=== PATIENT | male | born 1945 | race Caucasian/White ===

== ENCOUNTER 2016-11-07 09:29 | Outpatient (CLI) | END 2016-11-07 09:30 | disposition home or self-care (01) ==

== ENCOUNTER 2017-06-23 16:04 | Outpatient (CLI) | payer MEDICARE ==
--- NOTE | 2017-06-24 09:08 | XRAY Report ---
THREE-VIEW RIGHT FOOT: 06/23/2017 CLINICAL INDICATION: Crush injury. FINDINGS: AP, lateral, oblique views of the right foot demonstrate mild osteoarthritis of the interp halangeal joints and 1st metatarsophalangeal joint. There is no evidence of acute fracture or disloc ation. No radiopaque foreign body is seen in the soft tissues. Vascular calcifications are incident ally noted. IMPRESSION: MILD OSTEOARTHRITIS. NO EVIDENCE OF ACUTE FRACTURE. JOB #: [id number] EXT JOB #:[id number]
== END 2017-06-23 16:05 | disposition home or self-care (01) ==
LOC: DI 16:04
PROVIDERS: ATTEND Physician Assistant Medical
DX: S97.81XA Crushing injury of right foot, initial encounter (principal); M79.671 Pain in right foot; M19.071 Primary osteoarthritis, right ankle and foot

== ENCOUNTER 2017-11-10 10:17 | Outpatient (CLI) | payer MEDICARE ==
[2017-11-10 18:29] LABS: BASOPHILS % (AUTO) 0.5 %; EOSINOPHILS # (AUTO) 0.2 10^3/uL (0.0-0.7); EOSINOPHILS % (AUTO) 2.4 %; HGB - HEMOGLOBIN 15.4 g/dL (14.0-18.0); MEAN CORPUSCULAR HEMOGLOBIN 32.2 pg (27.0-31.0); MEAN CORPUSCULAR HGB CONC 33.6 g/dL (32.0-36.0); MEAN CORPUSCULAR VOLUME 95.9 fL (80.0-94.0); MEAN PLATELET VOLUME 8.3 fL (7.4-11.4); MONOCYTES # (AUTO) 0.8 10^3/uL (0.0-1.0); MONOCYTES % (AUTO) 9.3 %; NEUTROPHILS # (AUTO) 5.3 10^3/uL (1.5-6.6); NEUTROPHILS % (AUTO) 63.8 %; PLT - PLATELET COUNT 254 10^3/uL (130-450); RED BLOOD COUNT 4.79 10^6/uL (4.70-6.10); RED CELL DISTRIBUTION WIDTH 13.5 % (12.0-15.0); WHITE BLOOD COUNT 8.4 x10^3/uL (4.8-10.8)
[2017-11-10 18:40] LABS: ALBUMIN 4.3 g/dL (3.2-5.5); ALBUMIN/GLOBULIN RATIO 1.3 (1.0-2.2); BILIRUBIN,TOTAL 0.5 mg/dL (0.2-1.0); CALCIUM 9.4 mg/dL (8.5-10.3); CREATININE 0.9 mg/dL (0.6-1.2); TOTAL PROTEIN 7.5 g/dL (6.7-8.2)
== END 2017-11-10 10:18 | disposition home or self-care (01) ==
LOC: LAB.F 10:17
PROVIDERS: ATTEND Physician Assistant Medical
DX: Z12.5 Encounter for screening for malignant neoplasm of prostate (principal); I10 Essential (primary) hypertension; E55.9 Vitamin D deficiency, unspecified
CPT/HCPCS: 36415; 80053; 82306; 85025; G0103; 84153

== ENCOUNTER 2018-03-13 08:47 | Outpatient (CLI) | payer MEDICARE ==
[2018-03-13 11:59] LABS: ALBUMIN/GLOBULIN RATIO 1.3 (1.0-2.2); BILIRUBIN,TOTAL 0.7 mg/dL (0.2-1.0); CALCIUM 9.2 mg/dL (8.5-10.3); CREATININE 0.9 mg/dL (0.6-1.2); TOTAL PROTEIN 7.2 g/dL (6.7-8.2)
== END 2018-03-13 08:48 | disposition home or self-care (01) ==
LOC: LAB.F 08:47
PROVIDERS: ATTEND Physician Assistant Medical
DX: I10 Essential (primary) hypertension (principal); E55.9 Vitamin D deficiency, unspecified
CPT/HCPCS: 36415; 80053; 82306

== ENCOUNTER 2018-11-06 09:57 | Outpatient (CLI) | payer MEDICARE ==
[2018-11-06 17:56] LABS: BASOPHILS % (AUTO) 0.8 %; EOSINOPHILS # (AUTO) 0.2 10^3/uL (0.0-0.7); EOSINOPHILS % (AUTO) 3.1 %; HGB - HEMOGLOBIN 14.4 g/dL (14.0-18.0); LYMPHOCYTES # (AUTO) 1.9 10^3/uL (1.5-3.5); LYMPHOCYTES % (AUTO) 31.8 %; MEAN CORPUSCULAR HEMOGLOBIN 32.8 pg (27.0-31.0); MEAN CORPUSCULAR HGB CONC 33.2 g/dL (32.0-36.0); MEAN CORPUSCULAR VOLUME 98.9 fL (80.0-94.0); MEAN PLATELET VOLUME 7.8 fL (7.4-11.4); MONOCYTES # (AUTO) 0.6 10^3/uL (0.0-1.0); MONOCYTES % (AUTO) 10.6 %; NEUTROPHILS # (AUTO) 3.2 10^3/uL (1.5-6.6); NEUTROPHILS % (AUTO) 53.7 %; PLT - PLATELET COUNT 272 10^3/uL (130-450); RED BLOOD COUNT 4.39 10^6/uL (4.70-6.10); RED CELL DISTRIBUTION WIDTH 13.7 % (12.0-15.0); WHITE BLOOD COUNT 5.9 x10^3/uL (4.8-10.8)
[2018-11-06 20:23] LABS: ALBUMIN 4.1 g/dL (3.2-5.5); ALBUMIN/GLOBULIN RATIO 1.2 (1.0-2.2); BILIRUBIN,TOTAL 0.6 mg/dL (0.2-1.0); CALCIUM 8.8 mg/dL (8.5-10.3); TOTAL PROTEIN 7.4 g/dL (6.7-8.2)
== END 2018-11-06 09:58 | disposition home or self-care (01) ==
LOC: LAB.F 09:57
PROVIDERS: ATTEND Physician Assistant Medical
DX: I10 Essential (primary) hypertension (principal); Z12.5 Encounter for screening for malignant neoplasm of prostate
CPT/HCPCS: 36415; 80053; 85025; G0103; 84153

== ENCOUNTER 2019-08-17 08:57 | Outpatient (CLI) | payer MEDICARE ==
--- NOTE | 2019-08-17 09:34 | XRAY Report ---
Reason: MASS OF RIGHT KNEE JOINT Procedure Date: 08/17/2019 Accession Number: [id number] / [id number] Procedure: XRS - Knee 3 View RT CPT Code: FULL RESULT: EXAM: RIGHT KNEE RADIOGRAPHY EXAM DATE: 08/17/2019 09:10 AM. CLINICAL HISTORY: Mass of right knee joint. COMPARISON: None. TECHNIQUE: 3 views. FINDINGS: Bones: Normal. No fractures or bone lesions. Joints: The patient is status post unicompartmental knee arthroplasty in the medial weightbearing compartment. The femoral-tibial relationship is centered about the isocenters of the prosthesis components with suggestion of medial translation of the lateral femorotibial articulation as visualized. This apparent malalignment is likely exacerbated by oblique positioning of the AP projection. Similar suggestion is demonstrated on the sunrise view. Osteoarthrosis including marginal osteophytosis is seen at the patellar facet articulations as well as the lateral weightbearing compartment where chondrocalcinosis is noted. Soft Tissues: No radiopaque foreign body. Vascular calcifications are noted. IMPRESSION: Degenerative changes and alignment as described above in the setting of unicompartmental knee arthroplasty. If alignment is questionable on physical examination, recommend clarification with weightbearing views. RADIA
== END 2019-08-17 08:58 | disposition home or self-care (01) ==
LOC: DI.S 08:57
PROVIDERS: ATTEND Physician Assistant Medical
DX: M25.861 Other specified joint disorders, right knee (principal); M17.11 Unilateral primary osteoarthritis, right knee; M11.261 Other chondrocalcinosis, right knee

== ENCOUNTER 2019-11-08 11:28 | Outpatient (CLI) | payer MEDICARE ==
[2019-11-08 17:28] LABS: BASOPHILS # (AUTO) 0.1 10^3/uL (0.0-0.1); BASOPHILS % (AUTO) 0.8 %; EOSINOPHILS # (AUTO) 0.1 10^3/uL (0.0-0.7); EOSINOPHILS % (AUTO) 2.4 %; HGB - HEMOGLOBIN 14.2 g/dL (14.0-18.0); LYMPHOCYTES % (AUTO) 34.5 %; MEAN CORPUSCULAR HEMOGLOBIN 32.6 pg (27.0-31.0); MEAN CORPUSCULAR HGB CONC 33.4 g/dL (32.0-36.0); MEAN CORPUSCULAR VOLUME 97.5 fL (80.0-94.0); MEAN PLATELET VOLUME 10.5 fL (7.4-11.4); MONOCYTES # (AUTO) 0.6 10^3/uL (0.0-1.0); MONOCYTES % (AUTO) 9.3 %; NEUTROPHILS # (AUTO) 3.1 10^3/uL (1.5-6.6); NEUTROPHILS % (AUTO) 52.7 %; PLT - PLATELET COUNT 278 10^3/uL (130-450); RED BLOOD COUNT 4.36 10^6/uL (4.70-6.10); RED CELL DISTRIBUTION WIDTH 12.6 % (12.0-15.0); WHITE BLOOD COUNT 5.9 x10^3/uL (4.8-10.8)
[2019-11-08 18:17] LABS: ALBUMIN 4.5 g/dL (3.2-5.5); ALBUMIN/GLOBULIN RATIO 1.5 (1.0-2.2); BILIRUBIN,TOTAL 0.5 mg/dL (0.2-1.0); CALCIUM 9.7 mg/dL (8.5-10.3); CREATININE 0.8 mg/dL (0.6-1.2); TOTAL PROTEIN 7.6 g/dL (6.7-8.2)
[2019-11-08 18:50] LABS: HB2 TOTAL 14.5 g/dL; HEMOGLOBIN A1C 0.61 g/dL
== END 2019-11-08 11:29 | disposition home or self-care (01) ==
LOC: LAB.S 11:28
PROVIDERS: ATTEND Physician Assistant Medical
DX: I10 Essential (primary) hypertension (principal); Z12.5 Encounter for screening for malignant neoplasm of prostate; R73.01 Impaired fasting glucose
CPT/HCPCS: 36415; 80053; 83036; 85025; G0103; 84153

== ENCOUNTER 2019-11-25 11:21 | Outpatient (CLI) | payer MEDICARE ==
--- NOTE | 2019-11-25 17:26 | XRAY Report ---
Reason: CELLULITIS,SHARIFA,RIGHT Procedure Date: 11/25/2019 Accession Number: [id number] / [id number] Procedure: XRS - Finger(s) RT CPT Code: Final Report FULL RESULT: EXAM: RIGHT SECOND DIGIT RADIOGRAPHY EXAM DATE: 11/25/2019 11:47 AM. CLINICAL HISTORY: Cellulitis of the right finger. COMPARISON: None. TECHNIQUE: 3 views. FINDINGS: Bones: Equivocal/subtle cortical irregularity along the dorsal base of the distal phalanx of the second finger is seen, nonspecific. Osseous structures are otherwise intact. Joints: Mild osteoarthritic changes are seen in the DIP joint. Alignment is preserved. Soft Tissues: Generalized soft tissue swelling in the distal second finger is seen. IMPRESSION: Soft tissue swelling and subtle cortical irregularity along the dorsal base of the distal phalanx of the second finger. Underlying osteomyelitis in this area is not excluded. Correlation with finger MRI could be helpful in further evaluation. [facility]IA
== END 2019-11-25 11:22 | disposition home or self-care (01) ==
LOC: DI.S 11:21
PROVIDERS: ATTEND Family Medicine
DX: L03.011 Cellulitis of right finger (principal)
CPT/HCPCS: 73140

== ENCOUNTER 2019-12-02 15:54 | Outpatient (CLI) | payer MEDICARE ==
[~2019-12-02 15:54] MED LIST: GADOBUTROL 10 MMOL/10 ML VIAL ONE
[2019-12-02] MEDS ORDERED: GADOBUTROL 10 MMOL/10 ML VIAL IVP ONE (17:25)
--- NOTE | 2019-12-02 19:01 | MRI Report ---
Reason: CELLULITIS FINGER RT Procedure Date: 12/02/2019 Accession Number: [id number] / [id number] Procedure: MRI - Hand RT W/WO CPT Code: Final Report FULL RESULT: EXAM: RIGHT HAND MRI WITHOUT AND WITH CONTRAST EXAM DATE: 12/02/2019 05:44 PM. CLINICAL HISTORY: Cellulitis, right finger. COMPARISON: FINGER(S) RT 11/25/2019 12:00 PM. TECHNIQUE: Multiplanar, multisequence T1-weighted and fluid-sensitive sequences of the hand before and after administration of intravenous contrast. IV contrast: 9 cc Gadavist. Other: None. FINDINGS: Bones: Edema shaft and head middle phalanx second digit and diffuse marrow edema distal phalanx second digit sagittal proton density fat saturation and sagittal T1-weighted fat saturation sequences. Indistinct mild decreased marrow signal noncontrast T1-weighted sequence middle phalanx head and distal phalanx base. Sagittal T1-weighted sequence degraded by motion artifact. Probable decreased marrow signal middle phalanx head second digit on the axial T1-weighted sequence. Joints: Negative for increased fluid distal interphalangeal joint. Moderate osteoarthritis distal interphalangeal joint second digit. Ligaments: The visualized collateral ligaments are intact. Tendons: Diffuse second digit flexor tendon mild tenosynovitis. Probable tenosynovitis extensor tendon at the level of the proximal phalanx had. Other: No joint effusions or synovitis. Diffuse second digit cellulitis. Developing abscess ventral aspect distal interphalangeal joint and flexor tendon 1.4 cm in height, 1.5 cm in transverse dimension and 7 mm in AP dimension. At the dorsal radial aspect distal interphalangeal joint second digit is a 9.6 x 6.9 mm in transverse dimension and 5 mm in length probable abscess (image 33 series [id number]). IMPRESSION: 1. Possible early osteomyelitis distal phalanx base and middle phalanx head second digit. 2. Moderate osteoarthritis distal interphalangeal joint second digit. 3. Probable abscess 9.6 x 6.9 mm in transverse dimension and 5 mm in length dorsal radial aspect distal interphalangeal joint (image 33 series [id number]). 4. Maturing abscess 1.4 cm in length, 1.5 cm in transverse dimension and 7 mm in AP dimension palmar aspect distal interphalangeal joint second digit. 5. Diffuse second digit cellulitis and there is diffuse mild second digit flexor tendon tenosynovitis. RADIA
== END 2019-12-02 15:55 | disposition home or self-care (01) ==
LOC: DI 15:54
PROVIDERS: ATTEND Family Medicine
DX: M19.041 Primary osteoarthritis, right hand (principal); L03.011 Cellulitis of right finger; M00.9 Pyogenic arthritis, unspecified; M65.9 Synovitis and tenosynovitis, unspecified
CPT/HCPCS: 73220; A9585

== ENCOUNTER 2020-11-21 09:30 | Outpatient (CLI) | payer MEDICARE ==
[2020-11-21 16:02] LABS: BASOPHILS # (AUTO) 0.1 10^3/uL (0.0-0.1); BASOPHILS % (AUTO) 1.1 %; EOSINOPHILS # (AUTO) 0.2 10^3/uL (0.0-0.7); EOSINOPHILS % (AUTO) 3.2 %; HGB - HEMOGLOBIN 15.8 g/dL (14.0-18.0); LYMPHOCYTES # (AUTO) 1.8 10^3/uL (1.5-3.5); LYMPHOCYTES % (AUTO) 32.2 %; MEAN CORPUSCULAR HEMOGLOBIN 32.3 pg (27.0-31.0); MEAN CORPUSCULAR HGB CONC 34.3 g/dL (32.0-36.0); MEAN CORPUSCULAR VOLUME 94.1 fL (80.0-94.0); MEAN PLATELET VOLUME 10.2 fL (7.4-11.4); MONOCYTES # (AUTO) 0.7 10^3/uL (0.0-1.0); MONOCYTES % (AUTO) 12.5 %; NEUTROPHILS # (AUTO) 2.9 10^3/uL (1.5-6.6); NEUTROPHILS % (AUTO) 50.6 %; PLT - PLATELET COUNT 266 10^3/uL (130-450); RED BLOOD COUNT 4.89 10^6/uL (4.70-6.10); RED CELL DISTRIBUTION WIDTH 12.5 % (12.0-15.0); WHITE BLOOD COUNT 5.7 x10^3/uL (4.8-10.8)
[2020-11-21 16:21] LABS: ALBUMIN 4.2 g/dL (3.2-5.5); ALBUMIN/GLOBULIN RATIO 1.4 (1.0-2.2); ALKALINE PHOSPHATASE 60 IU/L (42-121); ALT ALANINE AMINOTRANSFERASE 34 IU/L (10-60); AST ASPARTATE AMINOTRANSFERASE 28 IU/L (10-42); BILIRUBIN,TOTAL 0.7 mg/dL (0.2-1.0); BUN - BLOOD UREA NITROGEN 17 mg/dL (6-20); CALCIUM 9.4 mg/dL (8.5-10.3); CARBON DIOXIDE - CO2 27 mmol/L (21-32); CHLORIDE 102 mmol/L (101-111); CHOL/HDL RATIO 3.3 (<5.0); CHOLESTEROL 160 mg/dL; GLUCOSE 103 mg/dL (70-100); HDL CHOLESTEROL 48 mg/dL; LDL CHOLESTEROL,CALCULATED 91 mg/dL; LDL/HDL RATIO 1.9 (<3.6); TOTAL PROTEIN 7.3 g/dL (6.7-8.2); VLDL CHOLESTEROL 21 mg/dL
[2020-11-21 19:38] LABS: HEMOGLOBIN A1c% 5.9 % (4.27-6.07)
== END 2020-11-21 09:31 | disposition home or self-care (01) ==
LOC: LAB.S 09:30
PROVIDERS: ATTEND Physician Assistant
DX: Z00.00 Encounter for general adult medical examination without abnormal findings (principal); R73.01 Impaired fasting glucose; I10 Essential (primary) hypertension; Z79.899 Other long term (current) drug therapy
CPT/HCPCS: 36415; 80053; 80061; 83036; 83721; 84153; 84443; 85025

== ENCOUNTER 2021-10-31 08:00 | Outpatient (CLI) | payer MEDICARE ==
--- NOTE | 2021-10-31 10:51 | XRAY Report ---
PROCEDURE: Wrist 4 View LT INDICATIONS: SWELLING OF LEFT WRIST TECHNIQUE: 4 views of the wrist were acquired. COMPARISON: None FINDINGS: Bones: There are degenerative changes of the first carpometacarpal joint with joint space narrowing and subchondral sclerosis. The radiocarpal joint demonstrates No fractures or dislocations. No suspi cious bony lesions. Soft tissues: Vasculature has atherosclerotic calcifications. No suspicious soft tissue calcificatio ns. IMPRESSION: 1. No acute abnormality. 2. Osteoarthritis of the first carpometacarpal joint. 3. Vascular calcifications. Reviewed by: Charbel Arenas on 10/31/2021 10:50 AM [facility] Approved by: Charbel Arenas on 10/31/2021 10:50 AM [facility] Station ID: [id number]
== END 2021-10-31 23:59 | disposition home or self-care (01) ==
LOC: DI.S 08:00
PROVIDERS: ATTEND Physician Assistant Medical
DX: M19.042 Primary osteoarthritis, left hand (principal); I70.208 Unspecified atherosclerosis of native arteries of extremities, other extremity

== ENCOUNTER 2022-02-27 09:27 | Outpatient (CLI) | payer MEDICARE ==
[2022-02-27 15:08] LABS: BASOPHILS # (AUTO) 0.1 10^3/uL (0.0-0.1); BASOPHILS % (AUTO) 0.9 %; EOSINOPHILS # (AUTO) 0.2 10^3/uL (0.0-0.7); EOSINOPHILS % (AUTO) 3.9 %; HCT - HEMATOCRIT 42.6 % (42.0-52.0); LYMPHOCYTES # (AUTO) 1.9 10^3/uL (1.5-3.5); LYMPHOCYTES % (AUTO) 35.8 %; MEAN CORPUSCULAR HGB CONC 35.2 g/dL (32.0-36.0); MEAN CORPUSCULAR VOLUME 93.8 fL (80.0-94.0); MEAN PLATELET VOLUME 10.5 fL (7.4-11.4); MONOCYTES # (AUTO) 0.7 10^3/uL (0.0-1.0); MONOCYTES % (AUTO) 12.9 %; NEUTROPHILS # (AUTO) 2.5 10^3/uL (1.5-6.6); NEUTROPHILS % (AUTO) 46.3 %; PLT - PLATELET COUNT 271 10^3/uL (130-450); RED BLOOD COUNT 4.54 10^6/uL (4.70-6.10); RED CELL DISTRIBUTION WIDTH 12.5 % (12.0-15.0); WHITE BLOOD COUNT 5.4 x10^3/uL (4.8-10.8)
[2022-02-27 15:55] LABS: THYROID STIMULATING HORMONE 3.22 uIU/mL (0.34-5.60)
[2022-02-27 16:01] LABS: ALBUMIN 3.9 g/dL (3.2-5.5); ALBUMIN/GLOBULIN RATIO 1.3 (1.0-2.2); ALKALINE PHOSPHATASE 49 IU/L (42-121); ALT ALANINE AMINOTRANSFERASE 31 IU/L (10-60); AST ASPARTATE AMINOTRANSFERASE 27 IU/L (10-42); BILIRUBIN,TOTAL 0.6 mg/dL (0.2-1.0); BUN - BLOOD UREA NITROGEN 15 mg/dL (6-20); CALCIUM 9.4 mg/dL (8.5-10.3); CARBON DIOXIDE - CO2 25 mmol/L (21-32); CHLORIDE 99 mmol/L (101-111); CHOL/HDL RATIO 3.1 (<5.0); CHOLESTEROL 146 mg/dL; CREATININE 0.9 mg/dL (0.6-1.2); GFR - MDRD 82 (>89); GLUCOSE 110 mg/dL (70-100); HDL CHOLESTEROL 47 mg/dL; LDL CHOLESTEROL,CALCULATED 78 mg/dL; LDL/HDL RATIO 1.7 (<3.6); POTASSIUM 4.3 mmol/L (3.5-5.0); SODIUM 134 mmol/L (135-145); TOTAL PROTEIN 6.9 g/dL (6.7-8.2); TRIGLYCERIDES 103 mg/dL; VLDL CHOLESTEROL 21 mg/dL
== END 2022-02-27 09:28 | disposition home or self-care (01) ==
LOC: LAB.S 09:27
PROVIDERS: ATTEND Registered Nurse
DX: I10 Essential (primary) hypertension (principal); Z13.220 Encounter for screening for lipoid disorders; Z13.29 Encounter for screening for other suspected endocrine disorder; Z79.899 Other long term (current) drug therapy
CPT/HCPCS: 36415; 80053; 80061; 83721; 84443; 85025

== ENCOUNTER 2023-02-10 11:41 | Outpatient (CLI) | payer MEDICARE ==
[2023-02-10 14:36] LABS: BASOPHILS # (AUTO) 0.1 10^3/uL (0.0-0.1); EOSINOPHILS # (AUTO) 0.2 10^3/uL (0.0-0.7); EOSINOPHILS % (AUTO) 3.9 %; HCT - HEMATOCRIT 44.6 % (42.0-52.0); HGB - HEMOGLOBIN 15.1 g/dL (14.0-18.0); LYMPHOCYTES # (AUTO) 2.3 10^3/uL (1.5-3.5); LYMPHOCYTES % (AUTO) 38.9 %; MEAN CORPUSCULAR HEMOGLOBIN 32.1 pg (27.0-31.0); MEAN CORPUSCULAR HGB CONC 33.9 g/dL (32.0-36.0); MEAN CORPUSCULAR VOLUME 94.9 fL (80.0-94.0); MEAN PLATELET VOLUME 10.5 fL (7.4-11.4); MONOCYTES # (AUTO) 0.6 10^3/uL (0.0-1.0); MONOCYTES % (AUTO) 9.9 %; NEUTROPHILS # (AUTO) 2.8 10^3/uL (1.5-6.6); PLT - PLATELET COUNT 274 10^3/uL (130-450); RED CELL DISTRIBUTION WIDTH 12.1 % (12.0-15.0)
[2023-02-10 15:45] LABS: ALBUMIN 4.3 g/dL (3.2-5.5); ALBUMIN/GLOBULIN RATIO 1.2 (1.0-2.2); ALKALINE PHOSPHATASE 50 IU/L (42-121); ALT ALANINE AMINOTRANSFERASE 29 IU/L (10-60); AST ASPARTATE AMINOTRANSFERASE 23 IU/L (10-42); BILIRUBIN,TOTAL 0.5 mg/dL (0.2-1.0); BUN - BLOOD UREA NITROGEN 23 mg/dL (6-20); CALCIUM 9.5 mg/dL (8.5-10.3); CARBON DIOXIDE - CO2 28 mmol/L (21-32); CHLORIDE 104 mmol/L (101-111); CHOL/HDL RATIO 4.1 (<5.0); CHOLESTEROL 183 mg/dL; CREATININE 1.1 mg/dL (0.6-1.2); GFR - MDRD 65 (>89); GLUCOSE 108 mg/dL (70-100); HDL CHOLESTEROL 45 mg/dL; LDL CHOLESTEROL,CALCULATED 111 mg/dL; LDL/HDL RATIO 2.5 (<3.6); POTASSIUM 4.4 mmol/L (3.5-5.0); SODIUM 138 mmol/L (135-145); TRIGLYCERIDES 134 mg/dL; VLDL CHOLESTEROL 27 mg/dL
[2023-02-10 16:12] LABS: THYROID STIMULATING HORMONE 3.03 uIU/mL (0.34-5.60)
== END 2023-02-10 11:42 | disposition home or self-care (01) ==
LOC: LAB.S 11:41
PROVIDERS: ATTEND Registered Nurse
DX: Z79.899 Other long term (current) drug therapy (principal); Z13.220 Encounter for screening for lipoid disorders; Z12.5 Encounter for screening for malignant neoplasm of prostate; Z13.29 Encounter for screening for other suspected endocrine disorder
CPT/HCPCS: 36415; 80053; 80061; 84443; 85025; G0103; 83721; 84153

== ENCOUNTER 2024-02-16 11:35 | Outpatient (CLI) | payer MEDICARE ==
[2024-02-16 14:24] LABS: BASOPHILS # (AUTO) 0.1 10^3/uL (0.0-0.1); BASOPHILS % (AUTO) 0.9 %; EOSINOPHILS # (AUTO) 0.2 10^3/uL (0.0-0.7); EOSINOPHILS % (AUTO) 3.9 %; HCT - HEMATOCRIT 43.1 % (42.0-52.0); HGB - HEMOGLOBIN 14.8 g/dL (14.0-18.0); LYMPHOCYTES # (AUTO) 1.9 10^3/uL (1.5-3.5); LYMPHOCYTES % (AUTO) 33.6 %; MEAN CORPUSCULAR HEMOGLOBIN 32.4 pg (27.0-31.0); MEAN CORPUSCULAR HGB CONC 34.3 g/dL (32.0-36.0); MEAN CORPUSCULAR VOLUME 94.3 fL (80.0-94.0); MEAN PLATELET VOLUME 10.5 fL (7.4-11.4); MONOCYTES # (AUTO) 0.5 10^3/uL (0.0-1.0); MONOCYTES % (AUTO) 9.2 %; NEUTROPHILS % (AUTO) 52.2 %; PLT - PLATELET COUNT 258 10^3/uL (130-450); RED BLOOD COUNT 4.57 10^6/uL (4.70-6.10); RED CELL DISTRIBUTION WIDTH 12.3 % (12.0-15.0); WHITE BLOOD COUNT 5.7 x10^3/uL (4.8-10.8)
[2024-02-16 14:55] LABS: ALBUMIN 4.2 g/dL (3.2-5.5); ALBUMIN/GLOBULIN RATIO 1.4 (1.0-2.2); ALKALINE PHOSPHATASE 53 IU/L (42-121); ALT ALANINE AMINOTRANSFERASE 28 IU/L (10-60); AST ASPARTATE AMINOTRANSFERASE 25 IU/L (10-42); BILIRUBIN,TOTAL 0.5 mg/dL (0.2-1.0); BUN - BLOOD UREA NITROGEN 18 mg/dL (6-20); CARBON DIOXIDE - CO2 28 mmol/L (21-32); CHLORIDE 103 mmol/L (101-111); CHOL/HDL RATIO 3.2 (<5.0); CHOLESTEROL 155 mg/dL; CREATININE 1.1 mg/dL (0.6-1.3); GFR - MDRD 65 (>89); GLUCOSE 100 mg/dL (74-104); HDL CHOLESTEROL 48 mg/dL; LDL CHOLESTEROL,CALCULATED 77 mg/dL; LDL/HDL RATIO 1.6 (<3.6); POTASSIUM 4.3 mmol/L (3.5-4.5); SODIUM 138 mmol/L (135-145); TOTAL PROTEIN 7.1 g/dL (6.4-8.9); TRIGLYCERIDES 152 mg/dL (48-352); VLDL CHOLESTEROL 30 mg/dL
[2024-02-16 14:56] LABS: THYROID STIMULATING HORMONE 2.67 uIU/mL (0.34-5.60)
== END 2024-02-16 11:36 | disposition home or self-care (01) ==
LOC: LAB.S 11:35
PROVIDERS: ATTEND Registered Nurse
DX: Z12.5 Encounter for screening for malignant neoplasm of prostate (principal); Z13.228 Encounter for screening for other metabolic disorders; Z13.220 Encounter for screening for lipoid disorders; Z13.29 Encounter for screening for other suspected endocrine disorder; Z13.0 Encounter for screening for diseases of the blood and blood-forming organs and certain disorders involving the immune mechanism
CPT/HCPCS: 36415; 80053; 80061; 84443; 85025; G0103; 83721; 84153